=== PATIENT | female | born 1965 | race American Indian/Alaskan Native ===

== ENCOUNTER 2018-04-13 18:01 | Emergency (ER) | payer SELFPAY ==
[2018-04-13 18:17] VITALS: BP 134/84
[2018-04-13] MEDS ORDERED: IBUPROFEN PO ONE (18:22)
[2018-04-13] MEDS ORDERED: ZOFRAN ODT PO STA (19:41)
--- NOTE | 2018-04-13 20:38 | XRay Report ---
FINAL REPORT PROCEDURE: XR CHEST ROUTINE 2V TECHNIQUE: PA and lateral chest radiographs were obtained. CPT 55546 HISTORY: couth and chest pain COMPARISON: No prior studies are available for comparison. FINDINGS: Heart: Normal. Mediastinum/Vessels: Normal. Lungs/Pleural space: An irregular ill-defined density measuring 1.8 x 1.9 centimeters is noted in the posterior left lower lobe better visualized on the lateral view. Bilateral pleural spaces are clear. . Bony thorax: No acute osseous abnormality. Other: IMPRESSION: An irregular density measuring 1.8 x 1.9 centimeters is noted in the left lower lobe. CT chest is rec ommended to rule out a neoplasm..
--- NOTE | 2018-04-13 22:45 | Emergency Department Report ---
- General Chief Complaint: Nausea/Vomiting/Diarrhea Stated Complaint: FLU SYM Time Seen by Provider: 04/13/18 19:37 Source: patient Mode of arrival: Ambulatory Limitations: No Limitations - History of Present Illness Initial Comments: 53-year-old obese [place] female smoker presents emerge department complaining of sudden onset of coryza, fevers, chills, coughing with scant mucous production as that has been non-progressing for the past 4 days. Reports no presyncope, no night sweats, no weight loss, MD Complaint: fever, cough, rhinorrhea, nasal congestion, other (nausea) -: Gradual Severity: moderate Quality: dull, aching Consistency: constant Improves With: nothing Worsens With: nothing Associated Symptoms: chills, myalgias, nasal congestion, cough. denies: diaphoresis, abdominal pain, vomiting, diarrhea, confusion, right sweats, weight loss, hoarseness Treatments Prior to Arrival: none - Related Data Previous Rx's Medication Instructions Recorded Last Taken Type ALBUTEROL Inhaler (OR & NICU) 1 puff IH Q4-6H PRN #1 inha 04/13/18 Unknown Rx [ProAir HFA Inhaler] guaiFENesin/CODEINE [Robitussin AC] 5 ml PO Q6H PRN #120 ml 04/13/18 Unknown Rx Allergies Allergy/AdvReac Type Severity Reaction Status Date / Time No Known Allergies Allergy Unverified 04/13/18 18:17 ED Review of Systems ROS: Stated complaint: FLU SYM Other details as noted in HPI Constitutional: chills, fever Eyes: denies: eye pain, eye discharge, vision change ENT: denies: ear pain, throat pain Respiratory: cough. denies: shortness of breath, wheezing Cardiovascular: denies: chest pain, palpitations Endocrine: no symptoms reported Gastrointestinal: denies: abdominal pain, nausea, diarrhea Genitourinary: denies: urgency, dysuria, discharge Musculoskeletal: denies: back pain, joint swelling, arthralgia Skin: denies: rash, lesions Neurological: denies: headache, weakness, paresthesias Psychiatric: denies: anxiety, depression Hematological/Lymphatic: denies: easy bleeding, easy bruising ED Past Medical Hx - Past Medical History Previous Medical History?: No - Surgical History Past Surgical History?: No - Social History Smoking Status: Current Every Day Smoker Substance Use Type: None - Medications Home Medications: Home Medications Medication Instructions Recorded Confirmed Last Taken Type ALBUTEROL Inhaler (OR & NICU) 1 puff IH Q4-6H PRN #1 inha 04/13/18 Unknown Rx [ProAir HFA Inhaler] guaiFENesin/CODEINE [Robitussin AC] 5 ml PO Q6H PRN #120 ml 04/13/18 Unknown Rx ED Physical Exam - General Limitations: No Limitations General appearance: alert, in no apparent distress - Head Head exam: Present: atraumatic, normocephalic - Eye Eye exam: Present: normal appearance, PERRL, EOMI Pupils: Present: normal accommodation - ENT ENT exam: Present: normal exam, mucous membranes moist, TM's normal bilaterally - Neck Neck exam: Present: normal inspection, full ROM - Respiratory Respiratory exam: Present: normal lung sounds bilaterally. Absent: respiratory distress, wheezes, rales, chest wall tenderness, accessory muscle use - Cardiovascular Cardiovascular Exam: Present: regular rate, normal rhythm. Absent: systolic murmur, diastolic murmur, rubs, gallop - GI/Abdominal GI/Abdominal exam: Present: soft, normal bowel sounds - Extremities Exam Extremities exam: Present: normal inspection - Back Exam Back exam: Present: normal inspection - Neurological Exam Neurological exam: Present: alert, oriented X3 - Psychiatric Psychiatric exam: Present: normal affect, normal mood - Skin Skin exam: Present: warm, dry, intact, normal color. Absent: rash ED Course Vital Signs 04/13/18 04/13/18 18:14 19:33 Temperature 101.5 F H 100.8 F H Pulse Rate 116 H 99 H Respiratory 18 17 Rate Blood Pressure 134/84 O2 Sat by Pulse 100 99 Oximetry ED Medical Decision Making - Radiology Data Radiology results: report reviewed X-ray shows a left lower lobe mass measuring about 2 mL centimeters in diameter, likely a neoplasm. Recommend a follow-up CT scan at some point - Medical Decision Making Discussion great detail with Ms. Jean of The findings on the x-ray report. Also gave her a copy of the x-ray. Advised on the need to follow-up for definitive management with a primary care doctor or [facility]. She is alert and oriented 3. She acknowledged her findings and also stated that she would follow-up as she understood the importance. She is aware that due to her smoking history, it increases the likelihood of this likely being a neoplasm and for that reason, we'll seek the appropriate therapy for the appropriate management. Critical care attestation.: If time is entered above; I have spent that time in minutes in the direct care of this critically ill patient, excluding procedure time. ED Disposition Clinical Impression: Viral syndrome, Mass of left lung Disposition: TO HOME OR SELFCARE Is pt being admited?: No Does the pt Need Aspirin: No Condition: Stable Instructions: Viral Syndrome (ED), Cold Symptoms (ED) Prescriptions: ALBUTEROL Inhaler (OR & NICU) [ProAir HFA Inhaler] 1 puff IH Q4-6H PRN #1 inha PRN Reason: Cough guaiFENesin/CODEINE [Robitussin AC] 5 ml PO Q6H PRN #120 ml PRN Reason: Cough Referrals: VICENTE MARIE DO [Primary Care Provider] - 3-5 Days [facility] [Provider Group] - 3-5 Days (For evaluation of your lung mass. Be sure to call them tomorrow to acquire an appointment)
== END 2018-04-13 22:57 | disposition home or self-care (01) ==
LOC: ED 18:01
DX: B34.9 Viral infection, unspecified (principal); R91.8 Other nonspecific abnormal finding of lung field; F17.200 Nicotine dependence, unspecified, uncomplicated
CPT/HCPCS: 71046; Q0162